=== PATIENT | male | born 1940 | race Caucasian/White ===

== ENCOUNTER 2024-12-27 01:26 | Emergency (ER) | payer MEDICARE ==
[2024-12-27] MEDS ORDERED: Sodium Chloride 0.9% 10 ML Syringe FLUSH PRN (01:48)
[2024-12-27 02:11] LABS: HEMATOCRIT 41.4 % (40.0-54.0); HEMOGLOBIN 13.9 g/dL (13.0-18.0); MEAN CORPUSCULAR HEMOGLOBIN 32.2 pg (27.0-32.0); MEAN CORPUSCULAR HGB CONC 33.6 g/dL (31.0-35.0); MEAN PLATELET VOLUME 9.6 fL (6.0-10.0); RED BLOOD CELL COUNT 4.32 M/uL (4.50-6.50); RED CELL DISTRIBUTION WIDTH 14.9 % (11.0-16.0); WHITE BLOOD CELL COUNT,WBC 12.7 K/uL (4.0-11.0)
[2024-12-27 02:38] LABS: ANION GAP 15.4 mmol/L (5.0-15.0); CALCIUM 9.1 mg/dL (8.5-10.1); CARBON DIOXIDE,CO2 26.7 mmol/L (21.0-32.0); CREATININE 1.67 mg/dL (0.70-1.30); EST CRCL DRUG DOSING (CG) 38.97 mL/min; MAGNESIUM 1.7 mg/dL (1.8-2.4); POTASSIUM,K 4.1 mmol/L (3.5-5.1); TROPONIN I HIGH SENSITIVITY 7.4 pg/ml (<=60.4)
[2024-12-27 02:54] LABS: INFLUENZA A NAA NEGATIVE (NEGATIVE); INFLUENZA B NAA NEGATIVE (NEGATIVE)
[2024-12-27 02:55] LABS: CORONAVIRUS COVID-19 NAA NEGATIVE (NEGATIVE)
== END 2024-12-27 08:30 | disposition home or self-care (01) ==
LOC: LB.ED 01:26
DX: R07.89 Other chest pain (principal); Z88.2 Allergy status to sulfonamides; Z88.8 Allergy status to other drugs, medicaments and biological substances; Z79.82 Long term (current) use of aspirin; Z79.899 Other long term (current) drug therapy
CPT/HCPCS: 0240U; 36415; 71045; 80048; 83735; 83880; 84484; 85027; 93005; 93010; 99283; 99285